=== PATIENT | female | born 1950 | race Caucasian/White ===

== ENCOUNTER 2020-02-04 05:34 | Inpatient (IN) ==
--- NOTE | 2020-02-01 09:52 | EKG Report ---
Test Performed on : 02/01/2020 09:44:56 AM Test Reason : PAT Blood Pressure : / mmHG Vent. Rate : 099 BPM Atrial Rate : 099 BPM P-R Int : 136 ms QRS Dur : 110 ms QT Int : 384 ms P-R-T Axes : 048 096 033 degrees QTc Int : 492 ms Sinus rhythm. with fusion complexes Rightward axis Incomplete right bundle branch block Prolonged QT Abnormal ECG When compared with ECG of 16-NOV-2019 10:08, (Unconfirmed) fusion complexes are now present Incomplete right bundle branch block has replaced Right bundle branch block Confirmed by Aleks Klein MD ([id number]) on 02/02/2020 6:19:15 PM
[2020-02-01 10:31] LABS: URINE SOURCE CLEAN CATCH
[2020-02-01 10:39] LABS: BASO# 0.04 X1000 (0.0-0.2); BASO% 0.4 % (0.0-0.8); BILIRUBIN URINE SMALL (NEGATIVE); BLOOD URINE NEGATIVE (NEGATIVE); COLOR YELLOW; EOS# 0.14 X1000 (0.0-0.7); EOS% 1.3 % (0.0-10.0); GLUCOSE URINE NEGATIVE (NEGATIVE); HEMATOCRIT 44.8 % (37.0-47.0); HEMOGLOBIN 14.4 g/dL (12.0-16.0); IMM GRAN# 0.05 X1000 (0.0-0.04); IMM GRAN% 0.5 % (0.0-0.5); KETONE URINE TRACE mg/dL (NEGATIVE); LEUKOCYTES URINE NEGATIVE (NEGATIVE); LYMPH# 1.54 X1000 (1.2-3.4); LYMPH% 14.7 % (20.5-51.1); MCH 28.5 PG (27-31); MCHC 32.1 g/dL (33-37); MCV 88.5 FL (81-99); MONO# 0.92 X1000 (0.11-0.59); MONO% 8.8 % (1.7-9.3); MPV 9.3 FL (7.4-10.4); NEUT# 7.76 X1000 (1.4-6.5); NEUT% 74.3 % (42.2-75.2); NITRITE URINE NEGATIVE (NEGATIVE); PH URINE 5.5; PLT 272 X1000 (130-400); PROTEIN URINE TRACE mg/dL (NEGATIVE); RBC 5.06 XMIL (4.2-5.4); RDW 14.9 % (11.5-14.5); SP GRAVITY URINE 1.024; TURBIDITY URINE HAZY (CLEAR); UROBILINOGEN URINE 4 mg/dL (NORMAL); WBC 10.45 X1000 (4.8-10.8)
[2020-02-01 10:40] LABS: UR EPITHELIAL CELLS >10 /HPF (<10); URINE BACTERIA NEGATIVE /HPF; URINE RBC <10 /HPF (<10); URINE WBC <10 /HPF (<10)
[2020-02-01 10:44] LABS: PROTIME 13.4 Seconds (11.0-16.0)
[2020-02-01 10:45] LABS: PTT 23.7 Seconds (22.3-41.8)
[2020-02-01 10:59] LABS: CALCIUM 9.5 mg/dL (8.8-10.2); CREATININE 2.1 mg/dL (0.5-0.9); POTASSIUM 4.4 mmol/L (3.5-5.1)
[2020-02-01 12:36] LABS: HEMOGLOBIN A1C 6.4 % (4.8-6.0)
[2020-02-04] MEDS ORDERED: PEPCID ONE (05:50)
[2020-02-04] MEDS ORDERED: REGLAN ONE (05:50)
[2020-02-04] MEDS ORDERED: COLACE ONE (05:50)
[2020-02-04] MEDS ORDERED: LYRICA ONE (05:50)
[2020-02-04] MEDS ORDERED: KEFZOL 2 GM/D5W 2 GM/50 ML IVPB ONE (05:51)
[2020-02-04] MEDS ORDERED: CELEBREX ONE (05:51)
[2020-02-04] MEDS ORDERED: LR 1,000 ML ONE (05:51)
[2020-02-04] MEDS ORDERED: DUONEB (A & A) INH ONE (06:14)
[2020-02-04] MEDS ORDERED: DURAMORPH ONE (06:30)
[2020-02-04] MEDS ORDERED: TORADOL ONE (06:30)
[2020-02-04] MEDS ORDERED: EXPAREL 1.3% ONE (06:30)
[2020-02-04] MEDS ORDERED: CYKLOKAPRON 1,000 MG/NS 1,000 MG/100 ML IVPB ONE (06:30)
[2020-02-04] MEDS ORDERED: SODIUM CHLORIDE 0.9% ONE (06:30)
[2020-02-04] MEDS ORDERED: MARCAINE 0.25% PF ONE ×2 (06:30→07:32)
[2020-02-04] MEDS ORDERED: NEOSPORIN G.U. IRRIGANT ONE (06:32)
[2020-02-04] MEDS ORDERED: DIPRIVAN 1% ONE (06:36)
[2020-02-04] MEDS ORDERED: VANCOMYCIN ONE ×2 (07:32)
[2020-02-04] MEDS ORDERED: ZEMURON ONE ×2 (07:36→07:43)
[2020-02-04] MEDS ORDERED: OFIRMEV 1000 MG/ISOTONIC SOLN 1,000 MG/100 ML BOTTLE ONE (07:36)
[2020-02-04] MEDS ORDERED: ZOFRAN ONE (07:36)
[2020-02-04] MEDS ORDERED: DECADRON ONE (07:36)
[2020-02-04] MEDS ORDERED: XYLOCAINE-MPF 2% ONE (07:36)
[2020-02-04] MEDS ORDERED: ROBINUL ONE (09:34)
[2020-02-04] MEDS ORDERED: NEOSTIGMINE ONE (09:34)
[2020-02-04] MEDS ORDERED: VANCOMYCIN 1 GM/NS 1 GM/250 ML IVPB IV ONE (10:02)
[2020-02-04] MEDS ORDERED: OXY IR PO PRN (10:02)
[2020-02-04] MEDS ORDERED: ZOFRAN PO PRN (10:02)
[2020-02-04] MEDS ORDERED: MILK OF MAGNESIA PO PRN (10:02)
[2020-02-04] MEDS ORDERED: ZOFRAN IV PRN (10:02)
[2020-02-04] MEDS ORDERED: MORPHINE IV PRN (10:02)
[2020-02-04] MEDS ORDERED: KEFZOL 1 GM/D5W 1 GM/50 ML IVPB IV SCH (10:15)
[2020-02-04] MEDS ORDERED: DILAUDID ONE (10:15)
--- NOTE | 2020-02-04 10:26 | Diag Imaging Result Doc PS360 ---
EXAM: SHOULDER-LEFT HISTORY: Post-Op TECHNIQUE: Single view COMPARISON: 01/22/2020 FINDINGS: There has been orthopedic surgery with placement of the right humeral head since the prior exam. There appears to be good positioning in the glenoid. Electronically signed by Darrion Levy 02/04/2020 10:24 AM
[2020-02-04] MEDS: NS 1,000 ML IV SCH (10:43)
[2020-02-04] MEDS: ULTRAM PO SCH ×4 (11:43→22:06)
[2020-02-04] MEDS: KEFZOL 2 GM/D5W 2 GM/50 ML IVPB IV SCH (15:25)
--- NOTE | 2020-02-04 16:24 | OPERATIVE NOTE ---
PROCEDURE DATE: 02/04/2020 PREOPERATIVE DIAGNOSIS: Left 4 part proximal humerus fracture. POSTOPERATIVE DIAGNOSIS: Left 4 part proximal humerus fracture. PROCEDURE: 1. Left reverse total shoulder arthroplasty. 2. Left open biceps tenodesis. SURGEON: Dr. James Tran. ASSISTANTS: Mildred Baker, whose help was needed for positioning, retraction and placement of implants and speed up efficiency of the OR. ANESTHESIA: General endotracheal anesthesia. COMPLICATIONS: None. SPECIMENS: None. DRAINS: Hemovac drain was placed into the shoulder. BLOOD LOSS: 100 mL. IMPLANTS: [employer] Equinox reverse shoulder arthroplasty system was used with a small reverse glenoid base plate, a 36 mm glenosphere, an 8.5 mm right cemented humeral fracture stem with a +5 mm humeral adapter tray and a +0- 36 mm humeral liner. INDICATIONS FOR PROCEDURE: Ms Stephenson is a 69-year-old lady who presented to clinic after sustaining a same-level fall resulting in a proximal humerus fracture. CT scan was done to better evaluate the fracture. It was found to have significant comminution that extended into the articular surface with displacement of the tuberosities. Given these findings decision was made to proceed to the operating room for left reverse shoulder arthroplasty. Risks, benefits, alternative therapies were discussed patient regarding surgery. Risks of surgery include but are not limited to risks of bleeding, infection, damage to nerves and vessels around the area, continued pain following surgery, dislocation, need for revision surgery. There is also risk of anesthesia including blood clot, stroke, heart attack, even . Patient understands these risks. All questions were answered. Informed consent was obtained. PROCEDURE IN DETAIL: Ms. Stephenson was identified by wristband and greeted in preop holding area on 02/04/2020. Her left upper extremity which was the operative site was marked with indelible ink per [facility] Sign Your Site protocol. Following this, the patient was transferred back to the operating room for surgery. Upon entering the OR, she was transferred in supine position on the Skytron table. All bony prominences were well padded. General endotracheal anesthesia was then induced. At this time, she was placed into a modified beach chair position. The left upper extremity was then prepped and draped in routine fashion using both peroxide as well as chlorhexidine. A formal time-out was performed confirming correct patient, procedure, operative site, operative side, administration of preop antibiotics. Everyone was in agreement. Patient received 2 g Ancef prior to incision. A 15 blade knife was used to make standard 10 cm incision starting at the tip of the coracoid, extending distally and laterally for deltopectoral approach. A knife was used to dissect through skin. Bovie cautery was then used to dissect through subcutaneous tissue. At this time the deltopectoral interval and cephalic vein were identified. The cephalic vein was taken laterally with the deltoid and protected throughout the entirety of the case. Once this was done, a finger was used to do are subdeltoid release. A Henson elevator was then placed at the cut of the subacromial space to our subacromial release. Brown deltoid retractor was then placed retracting the deltoid cephalic vein laterally. Bovie was used to incise clavipectoral fascia and a Castro was retractor was placed under the conjoined tendon, retracting this medially. At this time we had good exposure of the anterior aspect of the humerus. Bovie cautery was used to take down the anterior 1 cm of pec tendon. The bicipital sheath was then opened and the biceps was tenodesed down to the pec tendon using #1Vicryl suture. At this time the biceps was then cut proximally and traced up the groove into the joint. Our fracture site was then easily identified. Patient was found to have significant impaction of the shaft into the head with displacement of the greater and lesser tuberosities. The greater and lesser tuberosity were both freed up and debulked and tagged with Vicryl sutures for repair at the end of the case. Once this was done, humeral head was then removed in piecemeal fashion. Once all bone was removed we then turned our attention to glenoid exposure. A Batman retractor was placed over the anterior glenoid neck, followed by a Anne retractor of the posterior glenoid neck and a Hohmann superiorly. Bovie cautery and Orestes were then used to carefully remove the biceps tendon anchor and work our way inferior around the glenoid face removing labrum and releasing capsule. Care was taken along the inferior glenoid neck to watch for any contraction of the deltoid and axillary nerve and to be careful of the axillary nerve. Once we had good exposure of the glenoid, we then proceeded with preparation of the glenoid. Henson elevator was used to remove cartilage down to good subchondral surface. The trial for the glenoid guide to place the centering pin was then placed and our pin was driven into the vault. Once this was done, we then used cannulated reamers to ream the glenoid face to get to good subchondral bleeding bone. Following this, we placed our central PEG reamer. At this time a small glenoid base plate was opened on the back table. Bone graft was packed into the central PEG cage. We then removed our guide pin and impacted the base plate in routine fashion. Following this, we then drilled our peripheral screw hole starting with the superior and then inferior screws and then placing the anterior and posterior screws. We had excellent purchase with the screws and locking caps were then placed. At this time a 36 mm glenosphere was then opened and placed in routine fashion. Locking screw was then tightened down securing Heredia taper. Following this, we then turned our attention to the humerus. Retractors were removed and a brown deltoid retractor was placed laterally, followed by a Hohmann around the medial calcar to expose our humeral shaft. We then proceeded with reaming of the canal up to a size 10 reamer. At this time a cement restrictor was then placed distally in the humeral shaft. We then trialed our fracture stem with a +0 liner and humeral adapter tray. We found we are going to likely have to build up from here given the fact that the fracture extended a little more distal than just the head. At this time, we then opened our 8.5 mm cemented fracture stem. One batch of the DePuy quick set medium viscosity cement was mixed with 1 g of vancomycin on the back table. We then dried the canal and pressurized cement down this humeral shaft. The humeral stem was then pushed down into position, aligning the fit up with the posterior aspect of the bicipital groove as well as using the forearm for rotation setting about 20 to 25 degrees of retroversion. Once the cement had set up, we then trialed off of our fracture stem. We found to have good stability in range of motion with a +5 humeral adapter tray and a 0 polyethylene liner. We thus opened these implants and attached our +5 mm humeral adapter tray. We then trialed the +0 poly again and again found good range of motion with forward flexion, extension, internal, external rotation, as well as good stability without any signs of impingement with full internal rotation and with loading the elbow with the arm extended and internally rotated. Given this finding, the trial poly was removed and we opened a +0 36 mm polyethylene ethylene liner which was then impacted in position. At this time, the shoulder was then reduced, again taken through range of motion and found to be stable. We then proceeded with copiously irrigating the wound with 0.35% Betadine solution which was allowed to soak for 3 minutes. Once this was done, the shoulder was copiously irrigated with normal saline. We then proceeded with closure of our tuberosities. Again, the lesser tuberosity and subscap were significantly debulked as were the teres and infra spinatus on the greater tuberosity. At this time #2FiberWire suture was then used to reapproximate the greater tuberosity and external rotators to the fracture stem. The subscapularis was then tied down to the stem in a similar fashion. We then ran the interval between subscap and our greater tuberosity tendons using #1 Vicryl suture. Once we were done with our cuff repair and tacking down the tuberosities, we again took the shoulder through range of motion and found that it was not restricted and had good range of motion. At this time our deep Exparel solution was then injected around the rotator cuff tendons, joint capsule pec tendon and deltoid. Our skin injection was then placed superficially. We then proceeded with placement of a 10-Bur[place] Hemovac drain in routine fashion. We then placed 1 g of vancomycin powder in the wound. 0 Vicryl suture was then used to reapproximate the deltopectoral interval. We then used 2-0 Vicryl suture for subcutaneous tissue closure followed by 3-0 Monocryl for skin closure. Skin was then dressed with Dermabond and an Aqua Seal dressing was then placed. At this time, patient was placed into an abduction pillow sling, extubated, transferred to hospital stretcher in stable condition. There were no acute complications during the procedure. All sponge and sharp counts were correct at conclusion of procedure.
[2020-02-04] MEDS: TYLENOL PO SCH ×2 (17:37→22:02)
--- NOTE | 2020-02-04 20:17 | ORTHOPAEDICS PROGRESS NOTE ---
DATE: 02/04/2020 SUBJECTIVE: No acute events today. She states she still feels a little bit loopy from the surgery and anesthesia. She denies any pain in the shoulder. She is drinking liquids and has tolerated a diet. OBJECTIVE: Afebrile. Vital signs are stable. Hemovac drains in place with good seal. Minimal output.Extremity Examination: Left upper extremity shows surgical dressing to be clean, dry, intact. Drains in place with good seal. Motor is intact. AIN, PIN, and ulnar and axillary nerve distribution. Sensation intact to light touch to median, radial, ulnar, axillary nerves. Radial pulse palpable and equal bilaterally. ASSESSMENT: A 69-year-old female status post left reverse shoulder arthroplasty. PLAN: 1. Patient is nonweightbearing left upper extremity. Physical therapy will work with her tomorrow on doffing and donning the sling as well as elbow, wrist, and hand range of motion exercises. 2. SCDs for DVT prophylaxis. 3. Ice to left upper extremity as needed for pain. 4. Disposition: I will plan on sending patient home tomorrow morning once Dr. Gong rounds on her as long as she is stable, tolerating a diet, and has worked with therapy. She will follow up with me in clinic next week and will start physical therapy from there. She can leave her Aquacel dressing intact as long as it maintains a good seal.
[2020-02-04] MEDS: PERIDEX MT SCH (22:02)
[2020-02-04] MEDS: LYRICA PO SCH (22:02)
[2020-02-04] MEDS: COLACE PO SCH (22:02)
[2020-02-04] MEDS: CELEBREX PO SCH (22:02)
[2020-02-04 23:36] LABS: URINE SOURCE CLEAN CATCH
[2020-02-04 23:39] LABS: BILIRUBIN URINE NEGATIVE (NEGATIVE); BLOOD URINE NEGATIVE (NEGATIVE); COLOR YELLOW; GLUCOSE URINE NEGATIVE (NEGATIVE); KETONE URINE NEGATIVE (NEGATIVE); LEUKOCYTES URINE NEGATIVE (NEGATIVE); NITRITE URINE NEGATIVE (NEGATIVE); PROTEIN URINE NEGATIVE (NEGATIVE); SP GRAVITY URINE 1.021; TURBIDITY URINE CLEAR (CLEAR); UROBILINOGEN URINE NORMAL (NORMAL)
[2020-02-04 23:40] LABS: UR EPITHELIAL CELLS <10 /HPF (<10); URINE BACTERIA NEGATIVE /HPF; URINE RBC <10 /HPF (<10); URINE WBC <10 /HPF (<10)
[2020-02-05] MEDS: KEFZOL 2 GM/D5W 2 GM/50 ML IVPB IV SCH (00:32)
[2020-02-05] MEDS: TYLENOL PO SCH ×2 (03:44→08:58)
[2020-02-05] MEDS: NS 1,000 ML IV SCH (03:59)
[2020-02-05] MEDS: ULTRAM PO SCH (04:35)
[2020-02-05 07:52] VITALS: BP 145/67
[2020-02-05] MEDS: PERIDEX MT SCH (08:55)
[2020-02-05] MEDS: CELEBREX PO SCH (08:56)
[2020-02-05] MEDS: LYRICA PO SCH (08:56)
[2020-02-05] MEDS: COLACE PO SCH (08:56)
[2020-02-05] MEDS ORDERED: PEPCID PO SCH (09:00)
--- NOTE | 2020-02-05 16:13 | DISCHARGE SUMMARY ---
ADMISSION DATE: 02/04/2020 DISCHARGE DATE: 02/05/2020 ADMITTING DIAGNOSIS: 1. 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 2. Left 4-part proximal humerus fracture. DISCHARGE DIAGNOSIS: 1. 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 2. Left 4-part proximal humerus fracture. PRINCIPLE PROCEDURE: Left reverse total shoulder arthroplasty and left open biceps tenodesis. PAST MEDICAL HISTORY: Includes COPD and high blood pressure. ALLERGIES: Patient has no known drug allergies. DISCHARGE MEDICATIONS: Include Celebrex 200 mg b.i.d. for 15 days, Colace 100 mg b.i.d. p.r.n. constipation, Lyrica 75 mg b.i.d. for 15 days, oxycodone 5 mg for pain q. 4-6 hours, tramadol 50 mg q. 6 hours p.r.n. pain, Tylenol 500 mg 2 tablets every 8 hours for 15 days, Zofran 4 mg q. 8 p.r.n. nausea, vomiting. HOSPITAL COURSE: The patient was taken to the operating room on 02/04/2020, where a left reverse shoulder arthroplasty total joint was performed. She tolerated the procedure well. She was transferred to recovery room. She was then transferred to the surgical floor where DVT prophylaxis was initiated. She did well with physical therapy. She has been ambulating to the bathroom and back without any dizziness or nausea or vomiting. The patient was felt ready to be discharged on 02/05/2020. Her bandages are clean and dry. She has good sensation to the left upper extremity. There is good radial pulse. There is 5/5 pattern attendant strength. There is good capillary refill in the fingers. DISPOSITION: She is going to be discharged home. FOLLOWUP: She is to follow up with Dr. Tran sometime next week. She is to call the office and set up her appointment. DISCHARGE INSTRUCTIONS: Home at this time and call the office to make an appointment. Dictated by JOSE Cabello for Fantasma Gong MD cc: JOSE Cabello MD
== END 2020-02-05 10:58 | disposition home or self-care (01) | DRG 483 ==
LOC: SURHOLD 05:34 → EDSTATUS 10:00 → 4N 11:03 → UNDODISIN 12:43
PROVIDERS: ADMIT Orthopaedic Surgery Sports Medicine; ATTEND Orthopaedic Surgery Sports Medicine